=== PATIENT | female | born 1960 | race Caucasian/White ===

== ENCOUNTER → 2018-07-03 06:33 | Outpatient (CLI) | payer SELFPAY ==
--- NOTE | 2018-07-03 06:40 | MRI_ITS ---
STUDY: MRI BRAIN WITH AND WITHOUT CONTRAST REASON FOR EXAM: Female, 58 years old. Headaches and tinnitus TECHNIQUE: Standardized multiplanar fat and water weighted pulse sequences were obtained. 7 ml of Gadavist contrast material was administered intravenously for the contrast portion of the examination. COMPARISON: None. FINDINGS: Normal size of the ventricles and extra-axial spaces for the patient's age. Normal white matter tracts of the supratentorial brain. Normal bilateral basal ganglia. Normal thalami. There is no extra-axial fluid accumulation. Normal flow voids within the major intracranial circulation suggesting patency by spin echo criteria. Normal venous enhancement. There is no enhancing intra-axial or extra-axial abnormality. Partial empty sella deformity. Normal, infundibular stalk, optic chiasm and hypothalamus. Normal tectal plate and pineal gland. Normal midbrain, carrol and medulla. Normal cerebellum. Normal basal cisterns. Normal bilateral temporal bones. Normal bilateral internal auditory canals. No demonstrated orbital abnormality, within the constraints of a routine brain study. Minor mucosal thickening of the ethmoid air cells Normal calvarium and skull base. Normal visualized soft tissue structures. Normal visualized upper cervical spine. MRI/Brain W/WO Contrast IMPRESSION: Partial empty sella deformity likely of no significance. Otherwise normal brain. No evidence for acoustic or vestibular schwannoma Minor bilateral ethmoid sinus disease Electronically Signed: Bo Flowers MD at 19:09 EST , Service support ,
== END ==
PROVIDERS: Family Provider Surgery; PCP Surgery; Referring Provider Family Medicine; Visit Provider Family Medicine
DX: R51 Headache (principal)
CPT/HCPCS: 70553; A9585

== ENCOUNTER → 2018-09-13 16:35 | Outpatient (CLI) | payer SELFPAY ==
[2018-09-13 09:50] VITALS: BMI 23.5
[2018-09-13 17:49] LABS: Absolute Lymphocyte Count 3.61 X10^3/ul (0.83-4.51); Absolute Neutrophil Count 2.1 X10^3/uL (2.0-7.7); Basophil# 0.01 X10^3/uL; Basophil% 0.2 % (0-1); Eosinophil# 0.13 X10^3/uL; Hematocrit 37.6 % (37-47); Hemoglobin 12.2 g/dl (12.0-15.0); Lymphocyte # 3.61 X10^3/ul (4.0); Lymphocyte % 56.9 % (19-41); Mean Corp Hgb Conc 32.4 g/gl (32-36); Mean Corpuscular Hgb 30.6 pg (27.0-32.0); Mean Corpuscular Volume 94.2 fL (81-99); Mean Platelet Vol. 9.4 fl (6.2-12.0); Monocyte# 0.49 X10^3/uL; Monocyte% 7.7 % (0-10); Neutrophil # 2.11 X10^3/uL (2.7-7.7); Neutrophil % 33.2 % (47-70); Platelet Count 319 K/mm3 (150-450); RBC Distribution Width CV 12.6 % (11.6-14.6); RBC Distribution Width SD 43.5 fl (35.1-43.9); Red Blood Count 3.99 M/mm3 (4.2-5.4); White Blood Count 6.4 K/mm3 (4.4-11.0)
[2018-09-13 17:50] LABS: POSITIVE COUNT NO; POSITIVE DIFFERENTIAL NO; POSITIVE MORPHOLOGY NO
[2018-09-13 17:55] LABS: Anion Gap 8 (5-15); BUN 12 mg/dL (7-18); BUN/Creat Ratio 13.4 RATIO (10-20); Calcium,Total 9.1 mg/dL (8.5-10.1); Chloride 102 mmol/L (98-107); EST Glomerular Filtration Rate 69 mL/min (>60); Est Glom Filt Rate - Afr Amer 83 mL/min (>60); Glucose 86 mg/dL (74-106); Sodium Level 139 mmol/L (136-145)
--- OUTSIDE RECORDS SUMMARY | 2018-11-18 11:56 | XMS RPT_ITS ---
:1960 Author Organization [place] Care Team Providers Name Role Phone Nimesh Hicks Attending Unavailable Nimesh Hicks Admitting Unavailable Nimesh Hicks Primary Care Unavailable Nimesh Hicks Attending Unavailable Nimesh Hicks Primary Care Unavailable Nimesh Hicks Admitting Unavailable Fabiola, Nimesh Attending Unavailable Fabiola, Nimesh Primary Care Unavailable Fabiola, Nimesh Attending Unavailable Fabiola, Nimesh Primary Care Unavailable Fabiola, Nimesh Admitting Unavailable Fabiola, Nimesh Attending Unavailable Fabiola, Nimesh Primary Care Unavailable Brown, Nimesh Attending Unavailable Brown, Nimesh Referring Unavailable Brown, Nimesh Primary Care Unavailable Brown, Nimesh Attending Unavailable Brown, Nimesh Referring Unavailable Brown, Nimesh Primary Care Unavailable Brown, Nimesh Attending Unavailable FABIOLA, NIMESH Attending Unavailable FABIOLA, NIMESH Referring Unavailable Cebul, Lul Primary Care Unavailable Deena Godfrey Attending Unavailable Brown, Nimesh Attending Unavailable Cebul, Lul Referring Unavailable Brown, Nimesh Attending Unavailable Cebul, Lul Referring Unavailable PROBLEMS PROBLEMS DATE TYPE CONDITION / CODE ATTENDING STATUS SOURCE 09/14/2018 Unknown R30.0 - Dysuria / Brown, Nimesh Active [place] R30.0(ICD-10) [facility] Hospital Repository 09/13/2018 Unknown R19.7 - Diarrhea, Brown, Nimesh Active [place] unspecified / [facility] R19.7(ICD-10) Hospital Repository 08/08/2018 Unknown I10 - Essential Brown, Nimesh Active [place] (primary) [facility] hypertension / Hospital I10(ICD-10) Repository 07/25/2018 Unknown R51 - Headache / FABIOLA, NIMESH Active [place] R51(ICD-10) [facility] Hospital Repository PROCEDURES PROCEDURES No Procedure Records FoundRESULTS RESULTS URINALYSIS, COMPLETE Collected: 09/14/2018 Status: F Source: [place] 2:52 PM [facility] REPOSITORY Order Comment: How was Urine Obtained? 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 DIPSTX 1.025 LAB L400.3550 5.0 - 8.0 pH UR Normal 5.0 LAB L400.3600 Negative mg/dl PROT Normal DIPSTX Negative LAB L400.3700 Normal mg/dl Normal UROBILI Normal LAB L400.3750 Negative Normal NITRITE UR Negative LAB L400.3780 Negative /ul High 25 OCCULT BLOOD-UR LAB L400.3800 Negative /ul LEUK Normal ESTERASE Negative LAB L400.4050 0-5 /hpf WBC Normal 0-5 SEEN LAB L400.4100 0-5 /hpf 0 Normal RBC-UA SEEN LAB L400.4150 5-10 /hpf SQUAM Normal EPI 0-5 SEEN LAB L400.4300 None Seen /hpf 1+ Normal BACTERIA LAB L400.4350 <or=2+ /hpf 3+ Normal MUCUS, URINE Performed By: #### L400.0001 #### [facility] [address] [place], [address] CBC W/DIFF, AUTOMATED Collected: 09/13/2018 Status: F Source: [place] 4:43 PM [facility] REPOSITORY TYPE CODE TESTS RESULT OUT OF RANGE REFERENCE UNITS LAB L100.1000 4.4-11.0 K/mm3 Normal WBC 6.4 LAB L100.1200 4.2-5.4 M/mm3 Low RBC 3.99 LAB L100.1300 12.0-15.0 g/dl Normal HGB 12.2 LAB L100.1400 37-47 % Normal HCT 37.6 LAB L100.1500 81-99 fL Normal MCV 94.2 LAB L100.1600 27.0-32.0 pg Normal MCH 30.6 LAB L100.1700 32-36 g/gl Normal MCHC 32.4 LAB L100.1810 11.6-14.6 % Normal RDW CV 12.6 LAB L100.1820 35.1-43.9 fl Normal RDW SD 43.5 LAB L100.1900 150-450 K/mm3 Normal PLT 319 LAB L100.2000 6.2-12.0 fl Normal MPV 9.4 LAB L100.2100 47-70 % Low NEUT% 33.2 LAB L100.2200 19-41 % High LY% 56.9 LAB L100.2300 0-10 % Normal MONO% 7.7 LAB L100.2400 0-5 % Normal EO% 2.0 LAB L100.2500 0-1 % Normal BASO% 0.2 LAB L100.2550 0.0-0.9 % Normal IM GRAN % 0.000 Result Comment: IG% - Immature Granulocytes (promyelocytes, myelocytes and metamyelocytes) > 1% indicates that a LEFT SHIFT is Present. LAB L100.2620 2.0-7.7 X10 3/uL Normal Absolute Neut 2.1 LAB L100.2720 0.83-4.51 X10 3/ul Normal Absolute Lymph 3.61 Performed By: #### L100.0100 #### [facility] [address] [place], [address] BASIC METABOLIC Collected: 09/13/2018 Status: F Source: [place] PROFILE (BMP) 4:43 PM [facility] REPOSITORY TYPE CODE TESTS RESULT OUT OF RANGE REFERENCE UNITS LAB L501.0100 74-106 mg/dL Normal GLU 86 Result Comment: Please note revised GLUCOSE reference range effective 2017. LAB L501.1000 7-18 mg/dL Normal BUN 12 LAB L501.1100 0.55-1.02 mg/dL Normal CREAT,SERUM 0.90 Result Comment: The validity of the calculated GFR AND GFRAA in patients over 70 years has not been determined. Clinical correlation is essential. LAB L501.1110 >60 mL/min Normal EST GFR 69 Result Comment: Non- GFR Calc LAB L501.1115 >60 mL/min Normal EST GFR - AA 83 Result Comment: GFR Calc LAB L501.1300 10-20 RATIO Normal BUN/CRE 13.4 LAB L501.2200 8.5-10.1 mg/dL CA Normal 9.1 LAB L501.5300 136-145 mmol/L NA Normal 139 LAB L501.5600 3.5-5.1 mmol/L K Normal 4.0 LAB L501.5900 98-107 mmol/L CL Normal 102 LAB L501.6100 21.0-32.0 mmol/L Normal CO2 29.0 LAB L501.6200 5-15 Normal GAP 8 Performed By: #### L500.2500 #### [facility] [address] [place], [address] INTERNAL MEDICINE Observed: 09/13/2018 Status: F Source: [place] OFFICE VISIT 12:33 PM [facility] REPOSITORY [facility] [address] [place] [address] [place] [address] OFFICE VISIT Date of Service: 09/13/18 MR#: [id number] Acct: [id number] Name: ANA HICKS Rep #: [id number] : 1960 Provider: Nimesh Cain DO Age/Sex: 58/F Location: [facility] Status: Signed Intake Vital Signs09/13/18 Body Mass Index (BMI) 23.5 09/13/18 Height 5 ft 7 in 09/13/18 Weight: 152 lb 09/13/18 Body Mass Index (BMI) 23.8 09/13/18 Blood Pressure 130/71 H Intake Visit Reasons: burning vagina and rectum and bp up Chief Complaint: Burning Vagina AND Rectum - BP elevated off AND on Allergies No Known Allergies Allergy (Unverified 09/13/18 09:47) Medications lisinopril 10 mg tablet 10 mg PO DAILY #90 tab 08/08/18 [Rx Confirmed 09/13/18] multivitamin tablet 1 tab PO DAILY 08/08/18 [History Confirmed 09/13/18] vitamin E 200 unit capsule 200 unit PO DAILY 08/08/18 [History Confirmed 09/13/18] Garlic AND Parsley Oil PO 09/13/18 [History Confirmed 09/13/18] Progesterone Cream INTRADERM. 09/13/18 [History Confirmed 09/13/18] Yeast Cleanse PO 09/13/18 [History Confirmed 09/13/18] dicyclomine 20 mg tablet 20 mg PO BID #20 tab 09/13/18 [Rx Confirmed 09/13/18] estradiol 0.01% (0.1 mg/gram) vaginal cream 1 g VAGINAL 2XW #42.5 g 09/13/18 [Rx Confirmed 09/13/18] PFS Medical History Depression (Chronic) History of breast lump (Acute) Hyperlipemia (Chronic) Hypertension (Chronic) Surgical History H/O tubal ligation (Acute) History of cholecystectomy (Acute) Family History Mother Cancer Diabetes Father Hypertension Brother Heart disease Social History Smoking Status: Former smoker alcohol intake: never substance use type: does not use what type of physical activity do you participate in: walking Female Reproductive History Menstrual Menopause type: natural HPI HPI Chief Complaint: Burning Vagina AND Rectum - BP elevated off AND on Details: ANA HICKS, is a 58 F who presents to the office today for a burning sensation around the vagina and around the rectum. Coinciding is with with this is frequent loose stools occurring only during the daytime and not at nighttime. The stools are diarrhea in consistency there is no blood mucus in the stools. She also complains of a pulsating throbbing sensation in her head like a low-grade headache. This throbbing is not positional and there are no neurologic symptoms associated with it. ROS Const Constitutional: No chills, fatigue, fever(s), frequent falls, malaise, weakness, sleep problems or change in appetite Eyes Eyes: No blurry vision, change in vision, double vision, discharge or visual disturbances ENT ENT: No abnormal hearing, ear pain, ear pressure, tinnitus or dizziness/vertigo Resp Respiratory: No cough, shortness of breath or wheezing Cardio Cardiology: No chest pain at rest, chest pain with exertion, shortness of breath, dyspnea on exertion, generalized swelling, irregular heart rhythm, lightheadedness, orthopnea, fast heart rate or palpitations Gastro GI: Positive for diarrhea and other (Rectal burning); no abdominal pain, change in bowel habits, constipation, nausea/dyspepsia or vomiting Genitourinary-Female: Positive for vaginal dryness, painful intercourse (Steve) and other (Vaginal burning); no difficulty urinating, burning urination, painful urination, urinary incontinence, urinary frequency, urinary urgency, urinary hesitancy, urinary retention, Frequent nighttime urination/ nocturia, sexual problems, genital lesions, abnormal vaginal bleeding, pelvic pain, vaginal odor or Vaginal Itching Musc Musculoskeletal: No joint pain, back pain, joint swelling, limited range of motion, numbness or tingling Skin Skin: No change in skin color, itching, rash or wounds Breast Breast: No breast lump or breast pain Neuro Neurology: Positive for other ( Head feels strange); no frequent falls, weakness, visual disturbances, abnormal hearing, numbness, tingling, unsteady gait/balance, dizziness, loss of vision or memory loss Psych Psychiatric: No change in appetite, No memory loss, No anxiety, No depression, No Thoughts of harming yourself/Others Endo Endocrine: No fatigue, heat intolerance, increased thirst/drinking, increased hunger or increased urination Aller/Imm Allergy/Immunologic: No wheezing, itchy eyes or seasonal allergy symptoms Devin/Lymp Hematologic/Lymphatic: No easy bleeding, easy bruising or enlarged lymph nodes Exam Const General: cooperative Nutritional Appearance: average body habitus [facility] Head: normal to inspection Ears: hearing grossly normal bilaterally Eyes General: appearance normal, both eyes and all related structures Pupils: PERRL Direct ophthalmoscopy: normal light reflex, fundi normal bilaterally Resp Effort AND Inspection: normal respiratory effort Auscultation: Bilateral: Clear to Auscultation Cardio Rate: regular rate Rhythm: regular rhythm GI Inspection: normal to inspection Auscultation: hyperactive bowel sounds Palpation: soft, no hepatosplenomegaly Rectal Exam: visual inspection normal External Female Exam: normal external appearance, erythema, externally tender Speculum Exam - Vagina: atrophic vaginal mucosa Speculum Exam - Cervix: normal appearance of the cervix Skin General: no rashes or lesions noted Neuro General: oriented x3 Psych Appearance: grossly normal Mental Status: mental status grossly normal Assessment AND Plan Problems 1. Lactose intolerance in adult E73.9 2. Chronic diarrhea K52.9 3. Atrophic vaginitis N95.2 Plan This patient presents with a rather complex group of symptoms. Over the last several weeks she has had multiple loose bowel movements every day she knows she is lactose intolerance but is not stopped milk products. She also has a soreness and irritation around the rectum and the vagina. Physical examination revealed atrophic vaginitis and hyperactive bowel sounds other than that physical examination was pretty inconclusive. I thought the burning could be solved with biweekly topical estrogen and the hyperactive bowel stopped by taking simply a medicine such as Bentyl and avoiding lactose products. I gave her those instructions we ordered blood work to see if that pounding sensation she feels may be due to anemia also checking her potassium status. Orders Orders: Medications New: Coding Level of Care Code Off vis,est,level 3 Diagnoses Lactose intolerance in adult E73.9 Chronic diarrhea K52.9 Atrophic vaginitis N95.2 09/13/18 1233 <Electronically signed by Nimesh Cain DO> Date Nimesh Cain DO Cosigner Signature: Date (if applicable) CC: INTERNAL MEDICINE Observed: 08/08/2018 Status: F Source: [place] OFFICE VISIT 10:[address] 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 Is patient in pain?: Yes (headache ) Pain scale (1-10): 7 Medications lisinopril 10 mg tablet 10 mg PO DAILY #90 tab 08/08/18 [Rx Confirmed 08/08/18] multivitamin tablet 1 tab PO DAILY 08/08/18 [History Confirmed 08/08/18] vitamin E 200 unit capsule 200 unit PO DAILY 08/08/18 [History Confirmed 08/08/18] Post menopausal: Yes PFSH Medical History Depression (Chronic) History of breast lump (Acute) Hyperlipemia (Chronic) Hypertension (Chronic) Surgical History H/O tubal ligation (Acute) History of cholecystectomy (Acute) Family History Mother Cancer Diabetes Father Hypertension Brother Heart disease Social History Smoking Status: Former smoker alcohol intake: never substance use type: does not use what type of physical activity do you participate in: walking HPI HPI Chief Complaint: elevated BP Details: ANA HICKS, is a 58 F who presents to the office today for evaluation of an elevated blood pressure. This patient had been on lisinopril and had done quite well. She saw physician in [place] for headaches who initially switched her from lisinopril to metoprolol did a workup for the headaches which was negative. She had an MRI scan she had an EKG she had fairly extensive blood test all of which I reviewed as the patient brought them with her. At the last visit her blood pressure was 138/82 and according to the patient she was so told to stop the atenolol because her blood pressure was too low and about a week or so later she started having pounding headaches and found out on her home blood pressure cuff her blood pressure was elevated. ROS Const Constitutional: Positive for headache(s); no weight change, body ache, chills, fatigue, sleep problems, fever(s), change in appetite, snoring, weakness, frequent falls or excessive sweating Eyes Eyes: No change in vision, eye pain, light sensitivity or blurry vision ENT ENT: Positive for headache(s); no abnormal hearing, ear pain, tinnitus, nasal congestion, sore throat or neck pain Resp Respiratory: No snoring, cough, shortness of breath or wheezing Cardio Cardiology: No excessive sweating, chest pain at rest, chest pain with exertion, shortness of breath, dyspnea on exertion, palpitations, orthopnea or lightheadedness Gastro GI: Positive for nausea/dyspepsia; no abdominal pain, change in bowel habits, constipation, diarrhea, vomiting or cramping Genitourinary-Female: No burning urination, painful urination, urinary incontinence, urinary frequency, abnormal vaginal bleeding, pelvic pain or other Musc Musculoskeletal: No neck pain, abnormal walking, joint pain, back pain, limited range of motion, numbness or tingling Skin Skin: No redness, dry skin, itching, lesions, wounds or rash Neuro Neurology: Positive for headache(s); no weakness, frequent falls, abnormal hearing, abnormal walking, numbness, tingling, abnormal speech, dizziness or memory loss Psych Psychiatric: No change in appetite, No memory loss, No anxiety, No depression, No Thoughts of harming yourself/Others Endo Endocrine: No fatigue, excessive sweating, cold intolerance, increased thirst/drinking, heat intolerance, flushing or increased hunger Aller/Imm Allergy/Immunologic: No wheezing, itchy eyes, hives or seasonal allergy symptoms Devin/Lymp Hematologic/Lymphatic: No easy bleeding, easy bruising or enlarged lymph nodes Exam Const General: cooperative Nutritional Appearance: average body habitus HENMO Head: normal to inspection Ears: hearing grossly normal bilaterally Eyes General: appearance normal, both eyes and all related structures Pupils: PERRL Direct ophthalmoscopy: normal light reflex, fundi normal bilaterally Resp Effort AND Inspection: normal respiratory effort Auscultation: Bilateral: Clear to Auscultation Cardio Rate: regular rate Rhythm: regular rhythm Skin General: no rashes or lesions noted Neuro General: oriented x3 Psych Appearance: grossly normal Mental Status: mental status grossly normal Assessment AND Plan Problems 1. Essential hypertension I10 Plan With a normal physical examination and review of her history this patient was restarted on the lisinopril. She was told to do continued home blood pressure checks and if she had questions or problems with her blood pressure or recurrence of the headaches she was to let us know. Medications New: Plan Detail Follow Up 1 Year Coding Level of Care Code Off vis,est,level 3 Diagnoses Essential hypertension I10 Hypertension type: essential hypertension 08/08/18 1016 <Electronically signed by Nimesh Cain DO> Date Nimesh Cain DO Cosigner Signature: Date (if applicable) CC: BRAIN W/WO CONTRAST Observed: 07/03/2018 Status: F Source: [place] 6:41 AM [facility] REPOSITORY [facility] Imaging Services [address] [place] [address] Brain W/WO Contrast MR#: [id number] Acct: [id number] Name: ANA HICKS Rep #: [id number] : 1960 F 58 From: Bo Flowers MD PCP: Lul Weir MD Status: REG CLI Study: Brain W/WO Contrast Date of Exam: 07/03/18 Exam# [id number] Ordering Dr: Nimesh Hicks MD STUDY: MRI BRAIN WITH AND WITHOUT CONTRAST REASON FOR EXAM: Female, 58 years old. Headaches and tinnitus TECHNIQUE: Standardized multiplanar fat and water weighted pulse sequences were obtained. 7 ml of Gadavist contrast material was administered intravenously for the contrast portion of the examination. COMPARISON: None. FINDINGS: Normal size of the ventricles and extra-axial spaces for the patient's age. Normal white matter tracts of the supratentorial brain. Normal bilateral basal ganglia. Normal thalami. There is no extra-axial fluid accumulation. Normal flow voids within the major intracranial circulation suggesting patency by spin echo criteria. Normal venous enhancement. There is no enhancing intra-axial or extra-axial abnormality. Partial empty sella deformity. Normal, infundibular stalk, optic chiasm and hypothalamus. Normal tectal plate and pineal gland. Normal midbrain, carrol and medulla. Normal cerebellum. Normal basal cisterns. Normal bilateral temporal bones. Normal bilateral internal auditory canals. No demonstrated orbital abnormality, within the constraints of a routine brain study. Minor mucosal thickening of the ethmoid air cells Normal calvarium and skull base. Normal visualized soft tissue structures. Normal visualized upper cervical spine. MRI/Brain W/WO Contrast IMPRESSION: Partial empty sella deformity likely of no significance. Otherwise normal brain. No evidence for acoustic or vestibular schwannoma Minor bilateral ethmoid sinus disease Electronically Signed: Bo Flowers MD at 19:09 EST , Service support , CC: Nimesh Hicks MD; Lul Weir MD Investment Representative: Signed ALLERGIES ALLERGIES DATE TYPE / CODE NAME / CODE REACTION SEVERITY SOURCE 09/13/2018 Drug No Known Unknown [place] Allergy/416 Allergies/[id number] Community 295327(SNOM 388(RXNORM) [facility] ED CT) Repository Drug/735530 No Known [place] 003(SNOMED Medication [facility] CT) Allergies System Repository ENCOUNTERS ENCOUNTERS ADMIT/DISCHARGE ACCOUNT NUMBER ADMITTING ENCOUNTER LOCATION SOURCE CLASS 09/14/2018 [id number] [facility] ding:[facility]LAB Repository 09/13/2018 [id number] [facility] ding:MTLAB Repository 09/13/2018/09/13/19 [id number] Ambulatory BMSBuilding: [place] [facility] Repository 08/08/2018/08/08/20 [id number] Ambulatory BMSBuilding: [place] 18 [facility] Repository 07/03/2018 [id number] [facility] ding:MRI Repository 06/27/2018 [id number] [facility] ding:AshFamP Repository rac 06/27/2018/06/27/[id number] [place] ding:AshFamP Repository racRoom: Room 2 04/03/2018 [id number] Ambulatory [facility] ding:AshFamP Repository rac 04/03/2018/04/03/[id number] [place] ding:AshFamP Repository racRoom: Room 1 03/07/2018 [id number] Ambulatory BMSBuilding: [place] [facility]MS[facility] Repository 03/02/2018/03/02/[id number] [place] ding:AshFamP Repository racRoom: Room 3 11/28/2017 [id number] Ambulatory BMSBuilding: [place] BMS[facility] Repository PAYERS PAYERS ENCOUNTER GUARANTOR PAYER SUBSCRIBER SOURCE 09/14/2018 EFREM IBARRA Primary NOT GIVENUNK [place] [address] Insurance:SELF PAY [address] [address]Xpk: Number: Effective Repository Date:2018-09-14 () 09/13/2018 EFREM IBARRA Primary NOT GIVENUNK [place] Insurance:SELF PAY Community [address] [place] [address]Yxe: Number: Effective Repository Date:2018-09-13 () 09/13/2018 EFREM [id number] Primary NOT GIVENUNK [place] [address] Insurance:SELF PAY [address] [address]Fgs: Number: Effective Repository Date:2018-09-13 () 08/08/2018 [place]REM [id number] Primary NOT GIVENUNK Ar[address] Insurance:SELF PAY [address] [address]Etl: Number: Effective Repository Date:2018-08-08 () 07/03/2018 EFREM IBARRA Primary Insurance:[facility] EFREM HICKSDOB: [place] [address] PACKAGE [facility] [id number] Number: Effective [place], [place] [address]Fik: Date:2018-06-27 Repository () 07/03/2018 Secondary NOT GIVENUNK [place] Insurance:SELF PAY [facility] Number: Effective Repository Date:2018-06-27 06/27/2018 ANA PATINOB: Insurance:1500 Self RABERDOB: [facility] PayPolicy Number: [id number] System [facility] [address] Effective [facility] [address] Repository [address] [place] [address] Date:2018-06-272101[place], [place] [id number] , [place] [address]Ssq: Name:CD:[id number]: () () () 06/27/2018 ANA PATINOB: Insurance:1500 Self RABERDOB: [facility] PayPolicy Number: [id number] System [address] Effective [facility] Repository [address] [place] [address] Date:2018-06-262101[place] , [place] [id number] , [place] [address]Rhs: Name:CD:[id number] [phone]: (HP) (HP) (WP) 04/03/2018 ANA [place] Primary ANA Skinner RABERDOB: Insurance:1500 Self RABERDOB: [facility] PayPolicy Number: [id number] System [facility] Effective [facility] Repository [address] [place] [address] Date:2018-04-032101[place] , [place] [id number] , [place] [address]Uag: Name:CD:[id number] [phone]: (HP) (HP) (WP) 04/03/2018 ANA [place] Primary ANA Skinner RABERDOB: Insurance:1500 Self RABERDOB: [facility] PayPolicy Number: [id number] System [facility] Effective [facility] Repository [address] [place] [address] Date:2018-03-022101[place] , [place] [id number] , [place] [address]Qto: Name:CD:[id number] [phone]: (HP) (HP) (WP) 03/07/2018 EFREM [id number] Primary NOT GIVENUNK Ar[address] Insurance:SELF PAY Community [address] [place], [place] [address]Tel: Number: Effective Repository Date:2017-11-28 (HP) 03/02/2018 ANA [place] Primary ANA Skinner RABERDOB: Insurance:1500 Self RABERDOB: [facility] PayPolicy Number: [id number] System [facility] Effective [facility] Repository [address] [place] [address] Date:2018-03-02 - [address] [place] [address] [id number] , [place] [address]Lcd: Name:CD:[id number] [phone]: () () () 11/28/2017 EFREM [id number] Primary NOT [address] Insurance:SELF PAY Community [address] [place] [address]Obj: Number: Effective Repository Date:2017-11-28 ()
== END ==
PROVIDERS: Family Provider Family Medicine; PCP Family Medicine; Referring Provider Family Medicine; Visit Provider Family Medicine
DX: R19.7 Diarrhea, unspecified (principal)
CPT/HCPCS: 36415; 80048; 85025

== ENCOUNTER → 2018-09-14 14:39 | Outpatient (CLI) | payer SELFPAY ==
[2018-09-13 09:50] VITALS: BMI 23.5
[2018-09-14 14:52] LABS: Red Blood Cells-Urine 0 SEEN /hpf (0-5)
[2018-09-14 16:28] LABS: Color, Urine Yellow (Yellow); Glucose, Dipstick Normal (Normal); Ketone-Dipstick 5 mg/dl (Negative); Leukocyte Esterase-Dipstick Negative /ul (Negative); Nitrite-Dipstick Negative (Negative); Occult Blood-Urine 25 /ul (Negative); Protein-Dipstick Negative (Negative); Specific Gravity, Urine 1.025 (1.002-1.030); Urine Bilirubin Dipstick Negative (Negative); Urine Clarity Clear (Clear); Urine Urobilinogen Normal (Normal)
[2018-09-14 16:54] LABS: Bacteria 1+ /hpf (None Seen); Mucous, Urine 3+ /hpf (<or=2+); Squamous Epithelial Cells - UA 0-5 SEEN /hpf (5-10); White Blood Cells 0-5 SEEN /hpf (0-5)
--- OUTSIDE RECORDS SUMMARY | 2018-11-19 05:00 | XMS RPT_ITS ---
[...] Primary Care Unavailable Brown, Nimesh Attending Unavailable Cebul, Lul Referring Unavailable Brown, Nimesh Attending Unavailable Cebul, Lul Referring Unavailable Brown, Nimesh Attending Unavailable Brown, Nimesh Referring Unavailable Brown, Nimesh Primary Care Unavailable Brown, Nimesh Attending Unavailable Brown, Nimesh Referring Unavailable Brown, Nimesh Primary Care Unavailable Deena Godfrey Attending Unavailable FABIOLA, NIMESH Attending Unavailable FABIOLA, NIMESH Referring Unavailable Cebul, Lul Primary Care Unavailable Brown, Nimesh Attending Unavailable PROBLEMS PROBLEMS DATE TYPE CONDITION / CODE ATTENDING STATUS SOURCE 09/14/2018 Unknown R30.0 - Dysuria / Brown, Nimesh Active [place] R30.0(ICD-10) [facility] Hospital Repository 09/13/2018 Unknown R19.7 - Diarrhea, Brown, Nimesh Active [place] unspecified / [facility] R19.7(ICD-10) Hospital Repository 08/08/2018 Unknown I10 - Essential Brown, Nimesh Active [place] (primary) [facility] hypertension / Hospital I10(ICD-10) Repository 07/25/2018 Unknown R51 - Headache / FABIOLA, NIMESH Active [place] R51(ICD-10) [facility] Hospital Repository PROCEDURES PROCEDURES No Procedure Records FoundRESULTS RESULTS URINALYSIS, COMPLETE Collected: 09/14/2018 Status: F Source: [place] 2:52 PM [facility] HOSPITAL REPOSITORY Order Comment: How was Urine Obtained? 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, [address] CBC W/DIFF, AUTOMATED Collected: 09/13/2018 Status: F Source: [place] 4:43 PM [facility] REPOSITORY TYPE CODE TESTS RESULT OUT [...] Lymph 3.61 Performed By: #### L100.0100 #### [facility] [address] [place], [address] BASIC METABOLIC Collected: 09/13/2018 Status: F Source: [place] PROFILE (BMP) 4:43 PM [facility] REPOSITORY TYPE CODE TESTS RESULT OUT [...] GAP 8 Performed By: #### L500.2500 #### [facility] [address] [place], [address] INTERNAL MEDICINE Observed: 09/13/2018 Status: F Source: [place] OFFICE VISIT 12:33 PM [facility] REPOSITORY [facility] [address] [place] [address] [place] [address] OFFICE VISIT Date of Service: 09/13/18 MR#: [id number] Acct: [id number] Name: ANA HICKS Rep #: [id number] : 1960 Provider: Nimesh Cain DO Age/Sex: 58/F Location: [facility] Status: Signed Intake Vital Signs09/13/18 Body Mass [...] General: cooperative Nutritional Appearance: average body habitus [facility] Head: normal to inspection Ears: hearing grossly [...] F Source: [place] OFFICE VISIT 10:16 AM [facility] [address] [place] [address] OFFICE VISIT Date of Service: 08/08/18 MR#: [id number] Acct: [id number] Name: ANA HICKS Rep #: [id number] : 1960 Provider: Nimesh Cain DO Age/Sex: 58/F Location: [facility] Status: Signed Intake Vital Signs08/08/18 Height 5 ft 7 in Intake Visit Reasons: blood pressure- will be here at 9:30 for paperwork Chief Complaint: elevated BP 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 She saw physician in [place] for headaches who initially switched her from [...] General: cooperative Nutritional Appearance: average body habitus HENRI Head: normal to inspection Ears: hearing grossly [...] 07/03/2018 Status: F Source: [place] 6:41 AM [facility] REPOSITORY [facility] Imaging Services [address] [place] [id number] Brain W/WO Contrast MR#: [id number] Acct: [id number] Name: ANA HICKS Rep #: [id number] : 1960 F 58 From: Bo Flowers MD PCP: Lul Weir MD Status: REG CLI Study: Brain W/WO Contrast Date of Exam: 07/03/18 Exam# [id number] Ordering Dr: Nimesh Hicks MD STUDY: MRI [...] CC: Nimesh Hicks MD; Lul Weir MD 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 ding:MTLAB Repository 09/13/[id number] [facility] ding:MTLAB Repository 09/13/2018/09/13/19 [id number] Ambulatory BMSBuilding: [place] 19 BMS.[facility] Repository 08/08/2018/08/08/20 [id number] Ambulatory BMSBuilding: [place] 18 BMS.[facility] Repository 07/03/[id number] [facility] ding:MRI Repository 06/27/2018 [id number] Critical access hospital ding:[facility] Repository rac 06/27/2018/06/27/[id number] ding:[facility]amP Repository racRoom: Room 2 04/03/2018 [id number] Ambulatory [facility] ding:[facility] Repository rac 04/03/2018/04/03/[id number] [place] ding:[facility]amP Repository racRoom: Room 1 03/07/2018 [id number] Ambulatory BMSBuilding: [place] BMS.[facility] Repository 03/02/2018/03/02/[id number] [place] ding:Ash[facility]amP Repository racRoom: Room 3 11/28/2017 [id number] Ambulatory BMSBuilding: [place] BMS.[facility] Repository PAYERS PAYERS ENCOUNTER GUARANTOR PAYER SUBSCRIBER SOURCE 09/14/2018 EFREM IBARRA Primary NOT GIVENUNK [place] [address] Insurance:SELF PAY [address] [address]Mez: Number: Effective Repository Date:2018-09-14 () 09/13/2018 EFREM IBARRA Primary NOT GIVENUNK [place] [address] Insurance:SELF PAY Community [address] [place] [address]Evw: Number: Effective Repository Date:2018-09-13 () 09/13/2018 EFREM [id number] Primary NOT GIVENUNK [place] [address] Insurance:SELF PAY [address] [address]Tbw: Number: Effective Repository Date:2018-09-13 () 08/08/2018 [place]REM [id number] Primary NOT GIVENUNK [place] [address] Insurance:SELF PAY [address] [address]Cuc: Number: Effective Repository Date:2018-08-08 () 07/03/2018 EFREM IBARRA Primary Insurance:[facility] EFREM HICKSDOB: [place] [address] PACKAGE [facility] [id number] Number: Effective [place], [place] [address]Iry: Date:2018-06-27 Repository () 07/03/2018 Secondary NOT GIVENUNK [place] Insurance:SELF PAY [facility] Number: Effective Repository Date:2018-06-27 06/27/2018 ANA PATINOB: Insurance:1500 Self RABERDOB: [facility] PayPolicy Number: [id number] System [facility] [address] Effective [facility] [address] Repository [address] [place] [address] Date:2018-06-272101[place], [place] [id number] , [place] [address]Krb: Name:CD:[id number]: () () () 06/27/2018 ANA PATINOB: Insurance:1500 Self RABERDOB: [facility] PayPolicy Number: [id number] System [address] Effective [facility] [address] Repository [address] [place] [address] Date:2018-06-262101[place] , [place] [id number] , [place] [address]Rxq: Name:CD:[id number]: (HP) (HP) (WP) 04/03/2018 ANA [place] Primary ANA Skinner RABERDOB: Insurance:1500 Self RABERDOB: [facility] PayPolicy Number: [id number] System [facility] Effective [facility] [address] Repository [address] [place] [address] Date:2018-04-032101[place] , [place] [id number] , [place] [address]Mvg: Name:CD:[id number]: (HP) (HP) (WP) 04/03/2018 ANA [place] Primary ANA Skinner RABERDOB: Insurance:1500 Self RABERDOB: [facility] PayPolicy Number: [id number] System [facility] Effective [facility] [address] Repository [address] [place] [address] Date:2018-03-022101[place] , [place] [id number] , [place] [address]Vmm: Name:CD:[id number]: (HP) (HP) (WP) 03/07/2018 EFREM [id number] Primary NOT GIVENUNK [place] [address] Insurance:SELF PAY Community [address] [place], [place] [id number]: Number: Effective Repository Date:2017-11-28 (HP) 03/02/2018 ANA [place] Primary ANA Skinner RABERDOB: Insurance:1500 Self RABERDOB: [facility] PayPolicy Number: [id number] System [facility] Effective [facility] Repository [address] [place] [address] Date:2018-03-02 - [address] [place] [address] [id number] , [place] [address]Pjs: Name:CD:[id number]: () () () 11/28/2017 [place] HICKS305 Primary NOT [address] Insurance:SELF PAY Community [address] [place] [address]Don: Number: Effective Repository Date:2017-11-28 ()
== END ==
PROVIDERS: Family Provider Family Medicine; PCP Family Medicine; Referring Provider Family Medicine; Visit Provider Family Medicine
DX: R30.0 Dysuria (principal)
CPT/HCPCS: 81001

== ENCOUNTER → 2019-03-06 13:45 | Outpatient (CLI) | payer SELFPAY ==
[2019-03-06 13:20] VITALS: BMI 23.5
[2019-03-15 12:42] LABS: HPV Reflexed? YES, CHARGE PATIENT
== END ==
PROVIDERS: Family Provider Family Medicine; PCP Family Medicine; Visit Provider Family Medicine
DX: N95.2 Postmenopausal atrophic vaginitis (principal)
CPT/HCPCS: 87624; 88175; G0145

== ENCOUNTER → 2019-03-13 10:19 | Outpatient (CLI) | payer SELFPAY ==
[2019-03-06 13:20] VITALS: BMI 23.5
--- NOTE | 2019-03-13 10:21 | US_ITS ---
STUDY: ULTRASOUND OF THE FEMALE PELVIS - COMPLETE REASON FOR EXAM: Female, 59 years old. Right-sided pain. Postmenopausal female TECHNIQUE: Transabdominal TECHNICAL QUALITY: Adequate. COMPARISON: None. FINDINGS: The uterus is anteverted and is tilted to the left side of the pelvis. The uterus measures 7.8 x 3.9 x 1.9 cm. Normal uterine cervix. The endometrium measures 3 mm in thickness, and is hyperechoic. There is no demonstrated endometrial mass. There is no demonstrated myometrial mass. I.U.D. - The patient does not have an I.U.D. The right ovary is visualized. The right ovary measures 2.0 x 1.8 x 1.3 cm. There is no right ovarian cyst or ovarian mass. There is no visualized right adnexal mass or complex lesion. There is normal arterial and normal venous vascularity. The left ovary is visualized. The left ovary measures 2.1 x 1.7 x 1.2 cm. There is no left ovarian cyst or ovarian mass. There is no visualized left adnexal mass or complex lesion. There is normal arterial and normal venous vascularity. There is no fluid in the cul-de-sac. The pre void volume of the bladder was 768 ml. The urinary bladder appears grossly normal. Polycystic ovary disease: No. US/Pelvic (Non ) IMPRESSION: Normal female pelvis. Electronically Signed: Javier Kenny DO at 16:53 EDT Tel [phone], Service support ,
== END ==
PROVIDERS: Family Provider Family Medicine; PCP Family Medicine; Referring Provider Family Medicine; Visit Provider Family Medicine
DX: N83.201 Unspecified ovarian cyst, right side (principal)
CPT/HCPCS: 76856

== ENCOUNTER 2019-03-26 08:18 | Day surgery (SDC) | payer SELFPAY ==
[2019-03-19 15:57] VITALS: BMI 23.5
--- NOTE | 2019-03-25 | COLBX_PTH ---
PATIENT: ANA SHEPARD LOC: EN U#:[id number] AGE/SX: 59/F ROOM: RE03/26/[address]: Dr. Lul Weir MD : 1960 BED: DIS: 03/26/2019 SPEC #: [id number] RECD: 03/26/19 12:45 STATUS: LOIS REKianna #: [id number] SHAGUFTA: 03/25/19 00:[address]: Lul Weir DEPT: SURGICAL PATHOLOGY RECD BY: Grayson Vance ENTERED: 03/26/19 12:45 SP TYPE: COLON BX OTHR DR: Dr. Laith Cain, DO Tissues: COLON BIOPSY Procedures: Surgery Specimen Level IV HEADER OPERATION: Colonoscopy (MAC) PRE-OP DIAGNOSIS: History colon polyps TISSUE SUBMITTED: Random colon biopsies MICROSCOPIC DIAGNOSIS Colon, random biopsy: Fragments of benign chronic mucosa with no pathologic change. AM:sp 03/27/19 MICROSCOPIC DESCRIPTION Slides are reviewed. GROSS DESCRIPTION Received is one container labeled with the patient name and designated random colon biopsy. The specimen consists of multiple irregular fragments of light orb soft tissue that in aggregate measure 2.5 x 0.2 x 0.1 cm. The specimen is totally submitted in one cassette. / SJ:sp 03/26/19 TC: 5 CPT: 15447
--- NOTE | 2019-03-26 06:05 | HP.PCM_ITS ---
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 09/13/18 [History Confirmed 03/19/19] Yeast Cleanse PO 09/13/18 [History Confirmed 03/19/19] dicyclomine 20 mg tablet 20 mg PO TID #60 tab 03/07/19 [Rx Confirmed 03/19/19] PFSH Medical History Depression (Chronic) History of breast lump (Acute) Hyperlipemia (Chronic) Hypertension (Chronic) Surgical History H/O tubal ligation (Acute) History of cholecystectomy (Acute) Family History Mother Cancer Diabetes Father Hypertension Brother Heart disease Social History (Updated 03/19/19 @ 17:06 by Lul Weir MD) Smoking Status: Former smoker alcohol intake: never substance use type: does not use what type of physical activity do you participate in: walking Female Reproductive History Menstrual Menopause type: natural HPI HPI HPI: ANA SHEPARD, is a 59 F who presents to the office today for HPI HPI Surgical H&P: Yes HPI: ANA SHEPARD, is a 59 F who presents to the office today for surgical consultation regarding a personal history of colon polyps. The patient also makes comment that she had very recent onset of left breast pain and swelling. She reminds me that I assisted her remotely with an upper mid left breast excisional biopsy. She does not remember the circumstances but states that the tissue was benign. Her most recent colonoscopy was performed at [facility] April 19, 2012. That was performed as a screening exam. A small sessile polyp was removed from the distal rectosigmoid area. Pathology was tubular adenoma. Hyperplastic polyp. Fortunately the patient denies any bright red blood per rectum or melena. She has had diffuse generalized abdominal pain in the mid abdomen for at least 10 years if not greater. She currently carries a diagnosis of irritable bowel syndrome. She has not had recent mammograms. The patient is referred by her primary care physician Dr. Arsalan Cain and a written copy of my surgical consult recommendations will be returned to him ROS General General: No weight change, appetite, fatigue, colon cancer, breast cancer or weakness HEENT HEENT: No difficulty swallowing, eye injury, eye surgery, swollen glands or hoarseness Endo Endocrine: No thyroid disease, diabetes mellitus, thyroid cancer, Hair loss, heat intolerance or cold intolerance Skin Skin: No rash or changing moles Breast Breast: Yes breast enlargement Musc Musculoskeletal: No back problems, arthritis, rheumatoid arthritis, gout or joint pain Cardio Cardiovascular: Yes high blood pressure; no murmur, pacemaker, heart disease, atrial fibrillation, heart attack, heart stent, palpitations, shortness of breat with exertion or chest pain Psych Psychiatric: Yes depression and anxiety; no hearing voices Resp Respiratory: No shortness of breath, No sleep apnea, No cough, No COPD, No asth ma, No emphysema, No wheezing Gastro Gastrointestinal: Yes abdominal pain, No nausea or vomiting, No diarrhea, No constipation, No blood in stool, No acid reflux, No hemorrhoids, No ulcers, No gallbladder problem, No black,tarry stools Devin Hematologic: No blood thinners, No blood disorders, No bleeding, No anemia, No blood clots Neuro Neurologic: No system reviewed and no additional complaints, except as docu, No as per HPI, No abnormal walking, No abnormal hearing, No abnormal movements, No abnormal speech, No behavioral changes, No burning sensations, No confusion, No seizure-like activity, No unsteadiness, No dizziness, No localized weakness, No frequent falls, No headache(s), No lack of coordination, No loss of vision, No memory loss, No numbness, No other visual disturbances, No radiating pain, No restless legs, No sensory deficit, No fainting, No tingling, No tremor(s), No weakness, No other Exam Const General: cooperative Nutritional Appearance: average body habitus Orientation: alert, awake Chest Other: Right breast: No focal mass. No nipple discharge. No axillary or clavicular adenopathy Left breast: Well-healed transverse incision upper mid left breast. No focal mass. No swelling. No erythema. No axillary or clavicular Resp Effort & Inspection: normal respiratory effort Auscultation: clear to auscultation bilaterally Cardio Rate: regular rate Rhythm: regular rhythm Heart Sounds: no murmurs GI Other: Soft, very mildly distended, normal bowel sounds, no hepatosplenomegaly, mild diffuse tenderness but no rebound or guarding, no focal mass Neuro Cognition: normal cognition Extrem General: no calf tenderness bilaterally Psych Affect: normal affect Assessment & Plan Problems 1. Breast pain, left N64.4 2. Personal history of colonic polyps Z86.010 Plan I recommended the patient a colonoscopy with possible biopsy or polypectomy as indicated. She is aware of the technique, benefit, risks, alternatives. She has had an opportunity to ask and have questions answered. We will schedule and proceed at her discretion. She has had a long-term history of generalized abdominal pain. I anticipate utilizing monitored anesthesia care. The patient states that the left breast swelling and tenderness is markedly improved today. Clinically I cannot detect a mass. She is outdated with her screening mammograms. I recommended to the patient that she update her screening mammograms. She will consider this recommendation. She has had an opportunity to ask and have questions answered. We will schedule proceed at her discretion. cc:Dr Arsalan Weir M.D., F.A.C.S. Orders Orders: Colonoscopy Today Coding Level of Care Code 98957 Diagnoses Breast pain, left N64.4 Personal history of colonic polyps Z86.010 03/19/19 1706 <Electronically signed by [place]ul long MD> Date _ [place] Weir MD Cosigner Signature: Date (if applicable) CC: Laith Cain, ~ I have re-examined the patient. There are no clinical changes since date of exam.
[2019-03-26 08:42] VITALS: BP 127/71; PULSE 62; RESP 16; TEMP 36.4; O2SAT 99; BMI 22.0
[2019-03-26 09:55] VITALS: BP 104/55; BP 127/71; PULSE 61; RESP 16; TEMP 36.4; O2SAT 100
--- NOTE | 2019-03-26 09:56 | OP.ENDO_ITS ---
03/26/2019 Laith Cain Re : Colonoscopy procedure for Ruby Hicks Dear Dr. Cain This procedure was performed on Tuesday, March 26, 2019. My impressions and recommendations are as follows: Impressions : - Non-thrombosed external hemorrhoids, non-thrombosed internal hemorrhoids and internal hemorrhoids that prolapse with straining, but require manual replacement into the anal canal (Grade III) found on digital rectal exam. - Diverticulosis in the sigmoid colon and in the descending colon. - Tortuous colon. - The examination was otherwise normal. - Biopsies were taken with a cold forceps from the entire colon for evaluation of microscopic colitis. Recommendations : - Discharge patient to home. - Resume previous diet. - Continue present medications. - Repeat colonoscopy in 5 years for surveillance. - Telephone my office for pathology results in 1 week. My findings are described in the full procedure note, which is enclosed. If I can be of further assistance, please feel free to contact me at Doctor phone number(s): Work: . Sincerely, [place] Weir MD 03/26/2019 9:56:32 AM This report has been signed electronically.
[2019-03-26 10:00] VITALS: BP 127/71; BP 99/56; PULSE 64; RESP 16; O2SAT 100
[2019-03-26 10:05] VITALS: BP 106/61; BP 127/71; PULSE 59; RESP 16; O2SAT 100
[2019-03-26 10:06] VITALS: BP 109/64; BP 127/71; PULSE 55; RESP 16; TEMP 36.9; O2SAT 98
[2019-03-26 10:25] VITALS: BP 127/71
== END 2019-03-26 10:34 | disposition home or self-care (01) ==
LOC: EN 08:22 → AC 08:23
PROVIDERS: Family Provider Family Medicine; PCP Family Medicine; Referring Provider Family Medicine; Visit Provider Surgery
PROC: 0DJD8ZZ Inspection of Lower Intestinal Tract, Via Natural or Artificial Opening Endoscopic (ICD-10-PCS; CPT 45378; principal; 2019-03-26 09:25)
DX: Z12.11 Encounter for screening for malignant neoplasm of colon (principal); Z86.010 Personal history of colon polyps; K57.30 Diverticulosis of large intestine without perforation or abscess without bleeding; K58.9 Irritable bowel syndrome, unspecified; K64.2 Third degree hemorrhoids; K64.4 Residual hemorrhoidal skin tags; N64.4 Mastodynia; I10 Essential (primary) hypertension; E78.5 Hyperlipidemia, unspecified; Z78.0 Asymptomatic menopausal state; Z79.899 Other long term (current) drug therapy; Z87.891 Personal history of nicotine dependence
CPT/HCPCS: 45380; 88305; J7120

== ENCOUNTER → 2022-04-01 | Outpatient (CLI) | payer SELFPAY ==
[2022-04-01 09:45] LABS: Bacteria 0 SEEN /hpf (None Seen); Mucous, Urine 0 SEEN /hpf (<or=2+); Red Blood Cells-Urine 0 SEEN /hpf (0-5); White Blood Cells 0 SEEN /hpf (0-5)
[2022-04-01 12:14] LABS: Color, Urine Straw (Yellow); Glucose, Dipstick Normal (Normal); Ketone-Dipstick Negative (Negative); Leukocyte Esterase-Dipstick 100 /ul (Negative); Nitrite-Dipstick Negative (Negative); Occult Blood-Urine 25 /ul (Negative); Protein-Dipstick Negative (Negative); Urine Bilirubin Dipstick Negative (Negative); Urine Clarity Clear (Clear); Urine Urobilinogen Normal (Normal)
[2022-04-01 12:31] LABS: Squamous Epithelial Cells - UA 0-5 SEEN /hpf (5-10)
== END | disposition home or self-care (01) ==
PROVIDERS: PCP Family Medicine; Referring Provider Physician Assistant; Visit Provider Physician Assistant
DX: R30.0 Dysuria (principal)
CPT/HCPCS: 81001; 87086; 87088

== ENCOUNTER → 2022-06-29 | Outpatient (CLI) | payer SELFPAY ==
[2022-07-08 15:46] LABS: HPV Reflexed? NOT INDICATED
== END | disposition home or self-care (01) ==
PROVIDERS: PCP Family Medicine; Referring Provider Family Medicine; Visit Provider Family Medicine
DX: N95.2 Postmenopausal atrophic vaginitis (principal)
CPT/HCPCS: 88175; G0145

== ENCOUNTER → 2022-07-27 | Outpatient (CLI) | payer SELFPAY | END | disposition home or self-care (01) | LOC: LABSPEC 13:13 | PROVIDERS: PCP Family Medicine; Referring Provider Family Medicine; Visit Provider Family Medicine | DX: Z01.419 Encounter for gynecological examination (general) (routine) without abnormal findings (principal) | CPT/HCPCS: 88175; G0145 ==

== ENCOUNTER → 2022-07-29 | Outpatient (CLI) | payer SELFPAY ==
--- NOTE | 2022-07-29 08:29 | BI_ITS ---
MAMMOGRAPHY - BILATERAL SCREENING REASON FOR EXAM: Female, 62 years old. Routine annual screening examination. PERTINENT HISTORY: Non-contributory. Remote left excisional breast biopsy. TECHNIQUE: Digital bilateral breast srinivasan (3D mammographic acquisition) in the CC and MLO projections. 2-D mediolateral oblique (MLO) and craniocaudad (CC) views of both breasts were obtained. CAD: Full Field Digital Mammography with Computer Added Detection was performed. COMPARISON: Comparison is made with prior outside examination dated 06/18/2000. FINDINGS: Breast Composition: The breasts are heterogeneously dense, which may obscure small masses. There are no dominant masses or suspicious calcifications. The previously seen nodular density in the upper deep lateral aspect of the left breast is not seen at this time. Stable benign-appearing bilateral axillary lymph nodes. No other significant abnormalities are identified. BI/SCRN MAMM (CAD)W/SRINIVASAN BILAT IMPRESSION: Negative screening mammogram. Yearly followup mammogram recommended. (A) ASSESSMENT CATEGORY: BIRADS Category 2: Benign. A letter regarding these results will be sent to the patient by the facility within 30 days. Approximately 10% of breast cancers are not detected by mammography. A normal mammogram should not delay biopsy of a clinically suspicious abnormality. [id number] Electronically Signed: Jose Almanza MD at 9:41 EST ,
== END | disposition home or self-care (01) ==
LOC: OPBI 08:28
PROVIDERS: PCP Family Medicine; Visit Provider Family Medicine
DX: Z12.31 Encounter for screening mammogram for malignant neoplasm of breast (principal)
CPT/HCPCS: 77063; 77067